=== PATIENT | male | born 1985 | race Caucasian/White ===

== ENCOUNTER 2019-11-01 12:08 | Emergency (ER) | payer MEDICAID ==
[~2019-11-01] VITALS: Ht 180.3 cm; Wt 78.3 kg
[2019-11-01] MEDS ORDERED: ONDANSETRON 2MG/ML, 2ML IVPush ONE (12:30)
[2019-11-01] MEDS ORDERED: SODIUM CHLORIDE 0.9% 1,000ML IVBOLUS ONE (12:30)
[2019-11-01] MEDS ORDERED: DIPHENHYDRAMINE 50 MG/ML, 1ML IVPush ONE (12:30)
[2019-11-01] MEDS ORDERED: KETOROLAC 30 MG/1 ML IVPush ONE (12:30)
[2019-11-01] MEDS ORDERED: LORazepam 2 MG/ML, 1ML IVPush ONE ×2 (12:30→13:30)
--- NOTE | 2019-11-01 12:38 | NUR ---
PT HERE WITH C/O DETOX FROM ETOH. STATES LAST DRINK WAS 10/31/2019. PT AAO X 4, VSS, NAD, ROOM AIR. PT TREMULOUS AND ANXIOUS. PA AT BEDSIDE. PT IN GOWN AND ON ALL MONITORS, PIV ESTABLISHED AND LABS DRAWN BY THIS RN. CALL LIGHT WITHIN REACH AND SIDERAIL X [address]
[2019-11-01] MEDS ORDERED: DIPHENHYDRAMINE 50 MG/ML, 1ML ONE (12:44)
[2019-11-01 12:45] LABS: BASOPHILS % (AUTO) 0 % (0-1); EOSINOPHILS # (AUTO) 0.16 x10^3/uL (0-0.4); EOSINOPHILS % (AUTO) 1 % (1-7); LYMPHOCYTES # (AUTO) 2.09 x10^3/uL (1-3.4); LYMPHOCYTES % (AUTO) 15 % (22-44); MD NO; MEAN CORPUSCULAR HEMOGLOBIN 29.3 pg (27.5-34.5); MEAN CORPUSCULAR HGB CONC 34.1 g/dL (33.2-36.2); MEAN CORPUSCULAR VOLUME 86.2 fL (81-97); MEAN PLATELET VOLUME 9.2 fL (7.4-10.4); MONOCYTES # (AUTO) 0.19 x10^3/uL (0.2-0.8); MONOCYTES % (AUTO) 1 % (2-9); NEUTROPHILS # (AUTO) 11.12 x10^3/uL (1.8-6.8); NEUTROPHILS % (AUTO) 82 % (42-75); PLATELET COUNT 395 x10^3/uL (130-400); RED BLOOD COUNT 5.24 x10^6/uL (4.38-5.82); RED CELL DISTRIBUTION WIDTH 13.3 % (9.4-14.8)
[2019-11-01] MEDS ORDERED: LORazepam 2 MG/ML, 1ML ONE ×2 (12:45→13:27)
[2019-11-01] MEDS ORDERED: ONDANSETRON 2MG/ML, 2ML ONE (12:45)
[2019-11-01] MEDS ORDERED: KETOROLAC 30 MG/1 ML ONE (12:45)
[2019-11-01 12:51] LABS: ALBUMIN 4.2 g/dL (3.4-5.0); ANION GAP 8 mmol/L (5-15); CALCIUM 9.5 mg/dL (8.5-10.1); CHLORIDE 103 mmol/L (98-107)
--- NOTE | 2019-11-01 12:53 | NUR ---
PT MEDICATED PER ORDERS.
[2019-11-01 12:55] LABS: ALANINE AMINOTRANSFERASE 197 U/L (12-78); ALKALINE PHOSPHATASE 135 U/L (45-117); BILIRUBIN,TOTAL 0.3 mg/dL (0.2-1.0); CREATININE 1.09 mg/dL (0.7-1.3); TOTAL PROTEIN 8.3 g/dL (6.4-8.2)
[2019-11-01] MEDS ORDERED: THIAMINE 100MG TABLET PO ONE (13:00)
--- NOTE | 2019-11-01 13:21 | NUR ---
DR. WALDRON AT BEDSIDE, PLAN FOR ABDOMINAL US.
--- NOTE | 2019-11-01 13:30 | NUR ---
PA AT BEDSIDE FOR REASSESSMENT, PLAN TO REPEAT ATIVAN DOSE AND REASSESS. PT MEDICATED PER ORDERS.
[2019-11-01 13:31] VITALS: BP 119/69
--- NOTE | 2019-11-01 14:01 | NUR ---
US AT BEDSIDE.
[2019-11-01] MEDS ORDERED: LORazepam 1MG TABLET ONE (14:37)
--- NOTE | 2019-11-01 14:41 | NUR ---
PT MEDICATED PER ORDER.
[2019-11-01] MEDS ORDERED: LORazepam 1MG TABLET PO ONE (15:00)
--- NOTE | 2019-11-01 15:36 | NUR ---
Patient/Caregiver given discharge instructions and they have confirmed that they understand the instructions. Patient ambulatory with steady gait. PIV REMOVED WITH TIP INTACT.
== END 2019-11-01 15:38 | disposition home or self-care (01) ==
LOC: ED 13:07
DX: K70.10 Alcoholic hepatitis without ascites (principal); F10.239 Alcohol dependence with withdrawal, unspecified; G43.909 Migraine, unspecified, not intractable, without status migrainosus; Y90.9 Presence of alcohol in blood, level not specified
CPT/HCPCS: 36415; 76700; 80053; 83690; 85025; 93005; 96361; 96374; 96375; 96376; 99284; J1200; J1885; J2060; J2405; J7030